=== PATIENT | male | born 1985 | race Caucasian/White ===

== ENCOUNTER → 2019-09-12 10:48 | Outpatient (CLI) | payer OTHER, SELFPAY ==
--- NOTE | ~2019-09-12 | US_ITS ---
EXAMINATION: US thyroid EXAM DATE: 09/12/2019 11:11 INDICATION: Thyroid nodule at outside institution. Neck pain, throat pain. TECHNIQUE: Multiple grayscale and Doppler images of the thyroid were obtained (by a technologist who performed the scan) and subsequently reviewed. Individual nodules and recommendations may be reporte d in accordance with TI-RADS system as designated by the 2017 ACR White Paper TI-RADS committee. Alex elation is made to CT neck 09/12/2019. FINDINGS: The right thyroid lobe measures 5.6 x 1.5 x 2.1 cm, moderately enlarged, the left thyroid lobe measur ing 4.5 x 1.4 x 1.7 cm, mildly enlarged. Relatively homogeneous thyroid echogenicity. There is a small nodule in the lower pole of the left thyroid lobe measuring 6 x 5 x 6 millimeters, s olid (2 points), hypoechoic (2 points), wider than tall, smooth margin, containing punctate echogenic foci (3 points), category TR5 for this nodule. IMPRESSION: 1. Small right thyroid lobe nodule. A one-year follow-up thyroid ultrasound is recommended. 2. Thyromegaly. Reviewed, dictated and finalized at location A.
--- NOTE | ~2019-09-12 | CT_ITS ---
EXAMINATION: CT soft tissue neck wo con EXAM DATE: 09/12/2019 11:25 INDICATION: Arthritis 3-4 months. TECHNIQUE: Spiral CT of the neck was performed without contrast. Axial, coronal and sagittal images were reviewed. The dose-length product (DLP) for this examination was 385.24 mGy-cm. The exposure was tailored according to patient size (auto mA exposure control), and iterative reconstruction (ASIR ) was used as additional dose reduction technique. There is no prior study for comparison. FINDINGS: The thyroid gland is unremarkable. The submandibular and parotid glands are symmetric. There is no cervical lymphadenopathy. There are no masses identified. The superior mediastinum is unremarkable. The airway is unremarkable. Parapharyngeal and pre-glottic fat planes are preserve d. Limited evaluation of cervical vessels on this noncontrast study. The orbits are unremarkable. Visualized sinuses and mastoid air cells are well aerated. The bones are unremarkable. IMPRESSION: Unremarkable CT neck exam. Reviewed, dictated and finalized at location A. IMPRESSION: Unremarkable CT neck exam.
== END ==
PROVIDERS: Visit Provider Otolaryngology
DX: J02.9 Acute pharyngitis, unspecified (principal); E04.1 Nontoxic single thyroid nodule
CPT/HCPCS: 70490; 76536